=== PATIENT | female | born 1965 | race Caucasian/White ===

== ENCOUNTER 2017-01-08 21:07 | Emergency (ER) | payer SELFPAY ==
[2017-01-08 21:14] VITALS: BP 153/82; BMI 34.0
--- NOTE | 2017-01-08 21:36 | DR.GENAD ---
HPI - PCP Primary Care Physician: NFD - Complaint/Symptoms Chief Complaint Doctors Comments: no numbness and ambulates Chief Complaint:: PT C/O LBP SINCE RUNNING INTO A BED FRAME TODAY - Nurses notes reviewed Nurses Notes Review: Yes - Source History Provided: Patient - Mode of Arrival Mode of Arrival: Ambulatory - Timing Onset of Chief Complaint: 01/08/17 Came on: Suddenly - Duration Duration: Constant Duration: Hours - Location Location: low back - Severity Severity: Mild - Modifying Factors Worsens:: movement - Associated Signs and Symptoms Associated Signs and Symptoms: none PMH - PMH Past Medical History: Yes Past Medical History: Diabetes, Hypertension, [place] Past Surgical History: Yes Surgical History: Angioplasty/Stents, , Hysterectomy - Family History History of Family Medical Conditions: Yes Family Medical History: Diabetes Mellitus, [place], Hypertension - Social History Alcohol Use: None Do you use any recreational Drugs:: No Lives With: Family Lives Where: Home - infectious screening In the last 2 months have you had wt loss of >10#?: NO Have you had fever, night sweats or hemotysis?: No Have you traveled outside the country in the last 6 months?: No Isolation: Standard ROS - Review of Systems Constitutional: No Symptoms Reported Eyes: No Symptoms Reported ENTM: No Symptoms Reported Respiratoy: No Symptoms Reported Cardiovascular: No Symptoms Reported Gastrointestinal/Abdominal: No Symptoms Reported Genitourinary: No Symptoms Reported Neurological: No Symptoms Reported Musculoskeletal: Back Integumentary: No Symptoms Reported Hematologic/Lymphatic: No Symptoms Reported Endocrine: No Symptoms Reported Psychiatric: No Symptoms Reported All Other Systems: Reviewed and Negative PE - Vital Signs Vitals: Temperature 97.9 F Pulse Rate 68 Respiratory Rate 18 Blood Pressure 153/82 O2 Sat by Pulse Oximetry 100 - General Limitations: No Limitations General Appearance: Alert, In No Apparent Distress - Head Head Exam: Normal Inspection - Eyes Eye exam: Normal Appearance, EOMI, Conjunctival Injection. negative: PERRL - ENT ENT Exam: Normal Exam - Neck Neck Exam: Normal Inspection, Full ROM, Trachea Midline - Respiratory Respiratory Exam: negative: Accessory Muscle Use, Respiratory Distress - Extremities Extremities Exam: Normal Inspection - Neurologic Neurological Exam: Alert, Oriented X3, CN II-XII Intact - Psychiatric Psychiatric Exam: Flat Affect - Skin Skin Exam: Intact, Normal Color - Diagnosis Discharge Problem: Low back strain Qualifiers: Encounter type: initial encounter Qualified Code(s): S39.012A - Strain of muscle, fascia and tendon of lower back, initial encounter - Discharge Plan Condition: Stable - Follow ups/Referrals Follow ups/Referrals: NFD,None [Primary Care Provider] - 3 days - Instructions
[2017-01-08] MEDS ORDERED: TORADOL 60 MG VIAL IM ONE (21:42)
[2017-01-08] MEDS ORDERED: TORADOL 60 MG VIAL ONE (21:46)
== END 2017-01-08 22:09 | disposition home or self-care (01) ==
LOC: ER 21:17
DX: S39.012A Strain of muscle, fascia and tendon of lower back, initial encounter (principal); X58.XXXA Exposure to other specified factors, initial encounter; Y92.9 Unspecified place or not applicable
CPT/HCPCS: 96372; 99282; J1885

== ENCOUNTER 2017-07-14 19:41 | Emergency (ER) | payer SELFPAY ==
[2017-07-14 19:55] VITALS: BMI 34.3
[2017-07-14] MEDS ORDERED: TORADOL 60 MG VIAL IM ONE (20:19)
--- NOTE | 2017-07-14 20:19 | DR.GENAD ---
HPI - PCP Primary Care Physician: NFD - Complaint/Symptoms Chief Complaint Doctors Comments: Patient admits to left breast nipple discharge but does not know how long. She denies pain or cigarettes. Her last mamagram was one year ago. She also admits to low back pain. Chief Complaint:: PT C/O OF LOWER BACK SINCE SATURDAY, AND DARK BROWN LIQUID FROM LEFT BREAST WITH CONSTANT PAIN ALL AROUND THE WHOLE LEFT BREAST NOTICED LAST NIGHT 07/13/17. Self Treatment fo Chief Complaint: TYLENOL 500MG 3HRS AGO, PT STATES "IT AIN'T HELPED" - Source History Provided: Patient - Mode of Arrival Mode of Arrival: Ambulatory - Timing Onset of Chief Complaint: 07/01/17 PMH - PMH Past Medical History: Yes Past Medical History: Diabetes, Hypertension, [place] Past Surgical History: Yes Surgical History: Angioplasty/Stents, , Hysterectomy - Family History History of Family Medical Conditions: Yes Family Medical History: Diabetes Mellitus, Cancer, [place], Hypertension Family Medical History Comment: STROKE - Social History Does patient currently use any type of tobacco product: No Have you used tobacco products in the last 12 months: No Type of Tobacco Use: None Does any household member use tobacco: No Alcohol Use: None Do you use any recreational Drugs:: No Lives With: Spouse Lives Where: Home - infectious screening In the last 2 months have you had wt loss of >10#?: YES Have you had fever, night sweats or hemotysis?: Yes Have you traveled outside the country in the last 6 months?: No Isolation: Standard ROS - Review of Systems Eyes: No Symptoms Reported ENTM: No Symptoms Reported Respiratoy: No Symptoms Reported Cardiovascular: No Symptoms Reported Gastrointestinal/Abdominal: No Symptoms Reported Genitourinary: No Symptoms Reported Neurological: No Symptoms Reported Musculoskeletal: No Symptoms Reported, Other (left nipple discharge) Integumentary: No Symptoms Reported Hematologic/Lymphatic: No Symptoms Reported Endocrine: No Symptoms Reported Psychiatric: No Symptoms Reported All Other Systems: Reviewed and Negative PE - Vital Signs Vitals: Temperature 97.2 F Pulse Rate 80 Respiratory Rate 18 Blood Pressure 111/67 O2 Sat by Pulse Oximetry 97 - General General Appearance: Alert, In No Apparent Distress - Head Head Exam: Normal Inspection, Atraumatic - Eyes Eye exam: Normal Appearance, PERRL, EOMI - ENT ENT Exam: Normal Exam External Ear Exam: Normal External Inspection TM/Canal Exam: Bilateral Normal Nose Exam: Normal Nose Exam Mouth Exam: Normal Inspection Throat Exam: Normal Inspection - Neck Neck Exam: Normal Inspection, Full ROM - Chest Chest Inspection: Normal Inspection, Other (left breast with nipple discharge with expression; questionable palpable mass vs fatty tissue) - Respiratory Respiratory Exam: Normal Lung Sounds Bilat Respiratory Exam: Bilateral Clear to Auscultation - Cardiovascular Cardiovascular Exam: Regular Rate, Normal Rhythm - Abdominal Exam Abdominal Exam: Normal Inspection Abdominal Tenderness: negative: RUQ, RLQ, LUQ, LLQ, Epigastrium, Suprapubic, Diffuse, Mild, Moderate, Severe, Other - Extremities Extremities Exam: Normal Inspection - Back Back Exam: Normal Inspection, Full ROM - Neurologic Neurological Exam: Alert, Oriented X3, CN II-XII Intact - Psychiatric Psychiatric Exam: Normal Affect, Normal Mood - Skin Skin Exam: Warm, Dry Course - Reevaluation 1st: Unchanged ROR - Labs Reviewed Result Diagrams: 07/14/17 20:35 07/14/17 20:35 Laboratory: WBC 11.5 X10^3/uL (3.6-10.0) H 07/14/17 20:35 RBC 4.95 X10^6/uL (3.5-5.4) 07/14/17 20:35 Hgb 13.1 g/dL (12.0-16.0) 07/14/17 20:35 Hct 39.6 % (36.0-47.0) 07/14/17 20:35 MCV 79.9 fL (80.0-100.0) L 07/14/17 20:35 MCH 26.5 pg (27.0-34.0) L 07/14/17 20:35 MCHC 33.2 g/dL (33.0-35.0) 07/14/17 20:35 RDW 15.2 % (11.6-16.5) 07/14/17 20:35 Plt Count 175 X10^3/uL (150.0-450.0) 07/14/17 20:35 MPV 9.7 fL (7.4-11.0) 07/14/17 20:35 Neut % 63.4 % (42.0-75.0) 07/14/17 20:35 Lymph % 29.5 % (21.0-51.0) 07/14/17 20:35 Wilkes % 4.8 % (0.0-13.0) 07/14/17 20:35 Eos % 1.6 % (0.9-2.9) 07/14/17 20:35 Baso % 0.7 % (0.2-1.0) 07/14/17 20:35 Neut # 7.3 x10^3/uL (2.2-4.8) H 07/14/17 20:35 Lymph # 3.4 X10^3/uL (1.3-2.9) H 07/14/17 20:35 Wilkes # 0.6 x10^3/uL (0.3-0.8) 07/14/17 20:35 Eos # 0.2 x10^3/uL (0.0-0.2) 07/14/17 20:35 Baso # 0.1 X10^3/uL (0.0-0.1) 07/14/17 20:35 Absolute Nucleated RBC 0.0 /100WBC 07/14/17 20:35 Sodium 141 mmol/L (136-145) 07/14/17 20:35 Corrected Sodium 143 mmol/L (136-145) 07/14/17 20:35 Potassium 4.5 mmol/L (3.5-5.1) 07/14/17 20:35 Chloride 101 mmol/L (98-107) 07/14/17 20:35 Carbon Dioxide 29.3 mmol/L (21-32) 07/14/17 20:35 BUN 16 mg/dL (7-18) 07/14/17 20:35 Creatinine 1.19 mg/dL (0.55-1.02) H 07/14/17 20:35 Est GFR (MDRD) Af Amer > 60 (>60) 07/14/17 20:35 Est GFR (MDRD) Non-Af 50 (>60) L 07/14/17 20:35 Glucose 202 mg/dL (65-99) H 07/14/17 20:35 Calcium 9.4 mg/dL (8.5-10.1) 07/14/17 20:35 Corrected Calcium TNP 07/14/17 20:35 Total Bilirubin 0.20 mg/dL (0.2-1.0) 07/14/17 20:35 AST 20 Units/L (15-37) 07/14/17 20:35 ALT 30 Units/L (12-78) 07/14/17 20:35 Alkaline Phosphatase 74 Units/L (46-116) 07/14/17 20:35 C-Reactive Protein 17.90 mg/L (0-3.0) H 07/14/17 20:35 Total Protein 8.0 g/dL (6.4-8.2) 07/14/17 20:35 Albumin 3.8 g/dL (3.4-5.0) 07/14/17 20:35 Globulin 4.2 g/dL (2.5-4.5) 07/14/17 20:35 Albumin/Globulin Ratio 0.9 Ratio (1.1-2.1) L 07/14/17 20:35 - XRAY XRAY Interpreted by: Radiologist (Chest: Interstitial changes without evidence of focal consolidation) - Diagnosis Discharge Problem: Discharge of breast Back pain Qualifiers: Back pain location: low back pain Chronicity: chronic Back pain laterality: midline Sciatica presence: without sciatica Qualified Code(s): M54.5 - Low back pain; G89.29 - Other chronic pain; G89.29 - Other chronic pain - Discharge Plan Condition: Stable - Follow ups/Referrals Follow ups/Referrals: NFD,None [Primary Care Provider] - 3 days - Instructions
[2017-07-14] MEDS ORDERED: TORADOL 60 MG VIAL ONE (20:22)
[2017-07-14 20:41] LABS: BASOPHILS # (AUTO) 0.1 X10^3/uL (0.0-0.1); BASOPHILS % (AUTO) 0.7 % (0.2-1.0); EOSINOPHILS # (AUTO) 0.2 x10^3/uL (0.0-0.2); EOSINOPHILS % (AUTO) 1.6 % (0.9-2.9); HEMATOCRIT 39.6 % (36.0-47.0); HEMOGLOBIN 13.1 g/dL (12.0-16.0); LYMPHOCYTES # (AUTO) 3.4 X10^3/uL (1.3-2.9); LYMPHOCYTES % (AUTO) 29.5 % (21.0-51.0); MEAN CORPUSCULAR HEMOGLOBIN 26.5 pg (27.0-34.0); MEAN CORPUSCULAR HGB CONC 33.2 g/dL (33.0-35.0); MEAN CORPUSCULAR VOLUME 79.9 fL (80.0-100.0); MEAN PLATELET VOLUME 9.7 fL (7.4-11.0); MONOCYTES # (AUTO) 0.6 x10^3/uL (0.3-0.8); MONOCYTES % (AUTO) 4.8 % (0.0-13.0); NEUTROPHILS # (AUTO) 7.3 x10^3/uL (2.2-4.8); NEUTROPHILS % (AUTO) 63.4 % (42.0-75.0); PLATELET COUNT 175 X10^3/uL (150.0-450.0); RED BLOOD COUNT 4.95 X10^6/uL (3.5-5.4); RED CELL DISTRIBUTION WIDTH 15.2 % (11.6-16.5); WHITE BLOOD COUNT 11.5 X10^3/uL (3.6-10.0)
[2017-07-14 20:51] LABS: ALANINE AMINOTRANSFERASE 30 Units/L (12-78); ALBUMIN 3.8 g/dL (3.4-5.0); ALKALINE PHOSPHATASE 74 Units/L (46-116); ASPARTATE AMINO TRANSFERASE 20 Units/L (15-37); BLOOD UREA NITROGEN 16 mg/dL (7-18); CALCIUM 9.4 mg/dL (8.5-10.1); CARBON DIOXIDE 29.3 mmol/L (21-32); CHLORIDE 101 mmol/L (98-107); COR NA(FOR HYPERGLY) 143 mmol/L (136-145); CREATININE 1.19 mg/dL (0.55-1.02); SODIUM 141 mmol/L (136-145); eGFR BLACK RACES > 60 (>60); eGFR NON BLACK RACES 50 (>60)
--- NOTE | 2017-07-14 21:17 | RAD ---
HISTORY: Left chest/breast pain Study: Two views of the chest Comparison: August 27, 2016 Technique: Two views of the chest Findings: The patient is slightly rotated. The cardiac silhouette is enlarged. Slight elevation of the right he midiaphragm is again noted. Interstitial changes are seen within both lungs without evidence of focal consolidation. IMPRESSION: Cardiomegaly. Interstitial changes without evidence of focal consolidation. Reported By:
[2017-07-14 21:43] VITALS: BP 112/70
== END 2017-07-14 21:41 | disposition home or self-care (01) ==
LOC: ER 19:41
DX: M54.5 Low back pain (principal); N64.52 Nipple discharge; E11.8 Type 2 diabetes mellitus with unspecified complications; I10 Essential (primary) hypertension
CPT/HCPCS: 36415; 71020; 80053; 85025; 86140; 96372; 99282; J1885